=== PATIENT | male | born 1980 | race Caucasian/White ===

== ENCOUNTER 2018-09-08 05:34 | Observation (INO) | payer BC ==
[~2018-09-08 05:34] MED LIST: PHENYLephrine (100 MCG/ML) 5ML SYG
[2018-09-08] MEDS: LACTATED RINGER'S 1,000 ML IV* ×2 (06:00)
[2018-09-08] MEDS ORDERED: CEFAZOLIN 2 GM/50 ML (PMX) 50 ML IVPB (06:00)
[2018-09-08] MEDS ORDERED: DEXAMETHASONE 4 MG/ML 1 ML INJ (06:17)
[2018-09-08] MEDS ORDERED: FENTAnyl 50 MCG/ML VIAL (06:17)
[2018-09-08] MEDS ORDERED: PROPOFOL 20 ML (06:17)
[2018-09-08] MEDS ORDERED: MIDAZOLAM 1 MG/ML 2 ML INJ (06:17)
[2018-09-08] MEDS ORDERED: ROCURONIUM 50 MG INJ (06:17)
[2018-09-08] MEDS ORDERED: GLYCOPYRROLATE 0.4 MG INJ (06:17)
[2018-09-08] MEDS ORDERED: LIDOCAINE 2% (SDV) 5 ML INJ (06:17)
[2018-09-08] MEDS ORDERED: NEOSTIGMINE 3 MG/3 ML SYRINGE (06:17)
[2018-09-08] MEDS ORDERED: ONDANSETRON 4 MG INJ (06:18)
[2018-09-08] MEDS: BUPIVACAINE 0.25% (MPF) 30 ML INJ (07:44)
[2018-09-08] MEDS: GELATIN SIZE 100 SPONGE (07:44)
[2018-09-08] MEDS: POLYMYXIN/BACITRACIN 1L IRRIG (07:44)
[2018-09-08] MEDS ORDERED: hydrALAzine 20 MG INJ (07:46)
[2018-09-08] MEDS ORDERED: SUGAMMADEX SODIUM 200 MG/2 ML VIAL IV (07:52)
[2018-09-08] MEDS: THROMBIN 5000 UNIT VIAL (08:15)
[2018-09-08] MEDS ORDERED: MEPERIDINE 25 MG INJ (08:50)
[2018-09-08] MEDS: DEXTROSE 5%-0.45% NACL 1,000 ML IV ×2 (08:57→18:57)
[2018-09-08] MEDS ORDERED: PROCHLORPERAZINE 10 MG TAB PO (09:00)
[2018-09-08] MEDS ORDERED: AL HYDROX/MG HYDROX/SIMETH 30 ML CUP PO (09:00)
[2018-09-08] MEDS ORDERED: DIAZEPAM 5 MG/ML SYG IM (09:00)
[2018-09-08] MEDS ORDERED: NALOXONE (0.4 MG/ML) INJ IV (09:00)
[2018-09-08] MEDS ORDERED: NACL 0.9% 3 ML SYG IV (09:00)
[2018-09-08] MEDS ORDERED: TRIMETHOBENZAMIDE 100 MG/ML VIAL IM (09:00)
[2018-09-08] MEDS ORDERED: DIPHENHYDRAMINE 50 MG CAP PO (09:00)
[2018-09-08] MEDS: MEPERIDINE 25 MG INJ IV (09:32)
[2018-09-08] MEDS: HYDROCODONE/APAP (5/325) TAB PO ×2 (10:25→18:10)
[2018-09-08] MEDS: BETHANECHOL 25 MG TAB PO ×2 (12:32→20:06)
[2018-09-08] MEDS: CEFAZOLIN 1 GM/50 ML (PMX) 50 ML IVPB ×3 (12:32→23:40)
[2018-09-08] MEDS: CEPASTAT LOZENGE MT (12:36)
[2018-09-08] MEDS: DIAZEPAM 5 MG TAB PO ×2 (15:40→20:07)
[2018-09-08] MEDS: ONDANSETRON 4 MG INJ IV (20:07)
[2018-09-08] MEDS: RANITIDINE 150 MG TAB PO (20:07)
[2018-09-08] MEDS: ACETAMINOPHEN 325 MG TAB PO (20:07)
[2018-09-08] MEDS: ZOLPIDEM 5 MG TAB PO (23:40)
[2018-09-09] MEDS: HYDROCODONE/APAP (5/325) TAB PO ×2 (02:26→13:22)
[2018-09-09] MEDS: DIAZEPAM 5 MG TAB PO ×3 (02:26→13:21)
[2018-09-09] MEDS: DEXTROSE 5%-0.45% NACL 1,000 ML IV (04:57)
[2018-09-09 05:14] LABS: HEMATOCRIT 39.4 % (42.0-52.0); HEMOGLOBIN 13.8 g/dl (14.0-18.0)
[2018-09-09] MEDS: LACTATED RINGER'S 1,000 ML IV* ×2 (05:16)
[2018-09-09 05:44] LABS: ANION GAP 11 (5-13); BLOOD UREA NITROGEN 16 mg/dl (7-20); CALCIUM 8.9 mg/dl (8.4-10.2); CARBON DIOXIDE 26 mmol/L (21-31); CHLORIDE 104 mmol/L (97-110); CREATININE 0.91 mg/dl (0.61-1.24); Estimated GFR > 60 mL/min (>60); GLUCOSE 130 mg/dl (70-220); POTASSIUM 3.7 mmol/L (3.5-5.1); SODIUM 141 mmol/L (135-144)
[2018-09-09] MEDS: CEFAZOLIN 1 GM/50 ML (PMX) 50 ML IVPB (06:28)
[2018-09-09] MEDS: RANITIDINE 150 MG TAB PO (08:11)
[2018-09-09] MEDS: ACETAMINOPHEN 325 MG TAB PO (08:11)
[2018-09-09] MEDS: BETHANECHOL 25 MG TAB PO (08:12)
[2018-09-09] MEDS: ASCORBIC ACID 500 MG TAB PO (08:32)
[2018-09-09] MEDS: FERROUS SULFATE (EC) 325 MG TAB PO ×2 (08:32→13:18)
[2018-09-09] MEDS: DOCUSATE SODIUM 100 MG CAP PO (08:32)
[2018-09-09 09:41] LABS: ADD UMIC YES; UR ASCORBIC ACID NEGATIVE (NEGATIVE); UR BILIRUBIN (Dip) NEGATIVE (NEGATIVE); UR BLOOD (Dip) 1+ mg/dL (NEGATIVE); UR CLARITY CLEAR (CLEAR); UR COLOR YELLOW (YELLOW); UR GLUCOSE (Dip) NEGATIVE (NEGATIVE); UR KETONES (Dip) NEGATIVE (NEGATIVE); UR LEUKOCYTE ESTERASE (Dip) NEGATIVE Leu/ul (NEGATIVE); UR NITRITE (Dip) NEGATIVE (NEGATIVE); UR RBC 3 /HPF (0-5); UR SPECIFIC GRAVITY (Dip) 1.013 (1.003-1.030); UR TOTAL PROTEIN (Dip) NEGATIVE (NEGATIVE); UR UROBILINOGEN (Dip) NEGATIVE (NEGATIVE); UR WBC 2 /HPF (0-5)
== END 2018-09-09 16:55 | disposition home health service (06) ==
LOC: REC 05:34 → MS1 11:25
DX: M51.27 Other intervertebral disc displacement, lumbosacral region (principal); D68.2 Hereditary deficiency of other clotting factors
CPT/HCPCS: 63030; 72020; 80048; 81001; 85014; 85018; 86850; 86900; 86901; 88304; 97116; 97161; 97530